=== PATIENT | male | born 1975 | race Caucasian/White ===

== ENCOUNTER 2017-09-21 09:04 | Emergency (ER) | payer OTHER ==
[2017-09-21 09:19] VITALS: RESP 18
[2017-09-21] MEDS ORDERED: Morphine 4 mg/ml ISec IVP STA (09:42)
[2017-09-21] MEDS ORDERED: Sodium Chloride 0.9% 500 ML IV STA (09:42)
--- NOTE | 2017-09-21 09:46 | ED PDOC ---
Arrival/HPI - General Chief Complaint: Abdominal Pain Time Seen by Provider: 09/21/17 09:19 Historian: Patient, Spouse - History of Present Illness Narrative History of Present Illness (Text): 09/21/17 09:47 A 42 year old male, whose past medical history includes hypertension, was brought in by EMS to the emergency department complaining of abdominal pain, an hour ago, that developed after peritoneal dialysis. Patient denies any symptoms prior to dialysis treatment. Patient's reports two episodes of vomiting but denies any diarrhea, urinary symptoms, or any other complaints at this time. Time/Duration: 1 hour Symptom Onset: Sudden Symptom Course: Unchanged Activities at Onset: Rest Past Medical History - Provider Review Nursing Documentation Reviewed: Yes - Infectious Disease Hx of Infectious Diseases: None - Cardiac Hx Cardiac Disorders: Yes Hx Hypertension: Yes - Pulmonary Hx Respiratory Disorders: No - Neurological Hx Neurological Disorder: No - HEENT Hx HEENT Disorder: No - Renal Hx Renal Disorder: Yes Type of Dialysis Access: peritoneal dialysis, RLQ Date of Last Dialysis Treatment: 09/21/17 - Endocrine/Metabolic Hx Endocrine Disorders: No - Hematological/Oncological Hx Blood Disorders: No - Integumentary Hx Dermatological Disorder: No - Musculoskeletal/Rheumatological Hx Musculoskeletal Disorders: No - Gastrointestinal Hx Gastrointestinal Disorders: No - Genitourinary/Gynecological Hx Genitourinary Disorders: No - Psychiatric Hx Psychophysiologic Disorder: No Hx Substance Use: No - Surgical History Other/Comment: peritoneal dialysis placement in RLQ - Anesthesia Hx Anesthesia: Yes Hx Anesthesia Reactions: No Family/Social History - Physician Review Nursing Documentation Reviewed: Yes Family/Social History: Other (nc) Smoking Status: Heavy Smoker > 10 Cigarettes Daily Hx Alcohol Use: No Hx Substance Use: No Allergies/Home Meds Allergies/Adverse Reactions: Allergies No Known Allergies Allergy (Verified 09/21/17 09:14) Home Medications: Home Meds Medication Instructions Recorded Confirmed Carvedilol [Coreg Cr] 0 mg PO DAILY 09/21/17 09/21/17 Diclofenac [Diclofenac] 0 mg PO DAILY 09/21/17 09/21/17 Ibuprofen [Advil] 0 mg PO PRN PRN 09/21/17 09/21/17 metroNIDAZOLE [Flagyl] 0 mg PO DAILY 09/21/17 09/21/17 Review of Systems - Physician Review All systems were reviewed & negative as marked: Yes - Review of Systems Gastrointestinal: Abdominal Pain, Vomiting. absent: Diarrhea Genitourinary Male: absent: Dysuria, Frequency, Hematuria Physical Exam Vital Signs Reviewed: Yes Vital Signs Temp Pulse Resp BP Pulse Ox 09/21/17 16:55 98.9 F 86 18 155/94 H 100 09/21/17 16:34 98.7 F 86 18 155/94 H 100 09/21/17 15:13 100.0 F H 84 18 155/85 H 100 09/21/17 11:22 79 18 166/96 H 100 09/21/17 09:19 97.7 F 73 18 186/112 H 99 Appearance: Positive for: Well-Appearing, Non-Toxic, Comfortable Pain Distress: Mild Mental Status: Positive for: Alert and Oriented X 3 - Systems Exam Head: Present: Atraumatic, Normocephalic Pupils: Present: PERRL Extroacular Muscles: Present: EOMI Conjunctiva: Present: Normal Mouth: Present: Moist Mucous Membranes Neck: Present: Normal Range of Motion Respiratory/Chest: Present: Clear to Auscultation, Good Air Exchange. No: Respiratory Distress, Accessory Muscle Use Cardiovascular: Present: Regular Rate and Rhythm, Normal S1, S2. No: Murmurs Abdomen: Present: Tenderness (left sided), Normal Bowel Sounds, Other ( peritoneal dialysis catheter right lower abdomen, no erythema, no drainage). No : Distention Back: Present: Normal Inspection Upper Extremity: Present: Normal Inspection. No: Cyanosis, Edema Lower Extremity: Present: Normal Inspection. No: Edema Neurological: Present: GCS=15, CN II-XII Intact, Speech Normal Skin: Present: Warm, Dry, Normal Color. No: Rashes Psychiatric: Present: Alert, Oriented x 3, Normal Insight, Normal Concentration Medical Decision Making ED Course and Treatment: 09/21/17 09:48 Patient refused rectal temp. 09/21/17 13:10 CT scan of the abdomen pelvis Creator : Michael Allen MD IMPRESSION: Atrophic changes both kidneys left more significant than the right. Both kidneys exhibit on several low-attenuation foci likely representing cysts however the largest focus on on the right side exhibits Hounsfield units in the upper teens suggesting hyperdense cyst. Correlation with ultrasound could be performed. In situ intraperitoneal catheter which is presumed to represent a peritoneal dialysis catheter however clinical correlation recommended. Small amount of abdominal and pelvic ascites. Splenomegaly. Small to medium size hiatal hernia with wall thickening of the distal esophagus which could be due to protrusion of gastric mucosa. Esophagitis or other intrinsic/invasive wall lesion not excluded. Moderate amount of stool seen throughout the colon suggesting mild fecal retention. In addition, minimal wall edema or possibly submucosal fat deposition or possibly wall edema involving the ascending and transverse colon; submucosal fat deposition can be seen in is sequela of chronic inflammation however mild wall edema could be secondary to ascites ala or possibly a mild colitis.Clinical correlation recommended. . Possible renal osteodystrophy. 09/21/17 14:51 Patient requests transfer to [facility] [place] physician is affiliated with [facility]. 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 Morejon, who recommends to give patient gram of vancomycin and 80 mg gentamicin. She will accept patient as transfer to [facility]. 1655 pt stable upon transfer to [facility] [place] - Lab Interpretations Lab Results: 09/21/17 09:25 09/21/17 09:25 Lab Results 09/21/17 09:25: pO2 25 L, VBG pH 7.24 L, VBG pCO2 48.0, VBG HCO3 20.6 L, VBG Total CO2 22.1, VBG O2 Sat (Calc) 53.3, VBG Base Excess -6.9 L, VBG Potassium 4.5, Sodium 135.0, Chloride 104.0, Glucose 98, Lactate 0.5 L, FiO2 21.0, Venous Blood Potassium 4.5 09/21/17 09:25: Sodium 137, Chloride 102, Potassium 4.4, Carbon Dioxide 20 L, Anion Gap 19, BUN 105 H, Creatinine 16.7 H*, Est GFR ( Amer) 4, Est GFR ( Non-Af Amer) 3, Random Glucose 94, Calcium 8.2 L, Total Bilirubin 0.4, AST 18, ALT 33, Alkaline Phosphatase 144 H, Total Protein 6.6, Albumin 3.6, Globulin 2.9 , Albumin/Globulin Ratio 1.2, Lipase 515 H 09/21/17 09:25: WBC 5.1, RBC 3.51, Hgb 10.0 L, Hct 30.0 L, MCV 85.5, MCH 28.5, MCHC 33.3, RDW 14.0, Plt Count 167, MPV 10.8, Gran % 66.7, Lymph % (Auto) 19.3 L , Mcintosh % (Auto) 2.7, Eos % (Auto) 11.3 H, Baso % (Auto) 0.0, Gran # 3.41, Lymph # 1.0 L, Mcintosh # 0.1, Eos # 0.6, Baso # 0.00 I have reviewed the lab results: Yes - RAD Interpretation Radiology Orders: 09/21/17 10:40 ABD & PELVIS W/O PO OR IV CONT [CT] Stat - Medication Orders Current Medication Orders: Discontinued Medications Acetaminophen (Tylenol 325mg Tab) 975 mg PO STAT STA Stop: 09/21/17 15:31 Last Admin: 09/21/17 15:35 Dose: 975 mg MAR Pain/Vitals Document 09/21/17 15:35 EQ (Rec: 09/21/17 16:02 EQ [id number]) Pain Reassessment Is This A Pain ReAssessment? No Sleep Is patient sleeping during reassessment? No Presence of Pain Presence of Pain Yes Hydromorphone HCl (Dilaudid) 1 mg IVP STAT STA Stop: 09/21/17 10:51 Last Admin: 09/21/17 11:24 Dose: 1 mg MAR Pain Assessment Document 09/21/17 11:24 EQ (Rec: 09/21/17 11:24 EQ [id number]) Pain Reassessment Is this a pain reassessment? No Sleep Is patient sleeping during reassessment? No Presence of Pain Presence of Pain Yes Pain Scale Used Pain Scale Used Numeric IVP Administration Document 09/21/17 11:24 EQ (Rec: 09/21/17 11:24 EQ [id number]) Charges for Administration # of IVP Administrations 1 Hydromorphone HCl (Dilaudid) 1 mg IVP STAT STA Stop: 09/21/17 16:20 Last Admin: 09/21/17 16:31 Dose: 1 mg MAR Pain Assessment Document 09/21/17 16:31 EQ (Rec: 09/21/17 16:31 EQ [id number]) Pain Reassessment Is this a pain reassessment? No Sleep Is patient sleeping during reassessment? No Presence of Pain Presence of Pain Yes IVP Administration Document 09/21/17 16:31 EQ (Rec: 09/21/17 16:31 EQ [id number]) Charges for Administration # of IVP Administrations 1 Sodium Chloride (Sodium Chloride 0.9%) 500 mls @ 999 mls/hr IV .Q31M STA Stop: 09/21/17 10:12 Last Admin: 09/21/17 09:53 Dose: 999 mls/hr eMAR Start Stop Document 09/21/17 09:53 EQ (Rec: 09/21/17 09:53 EQ [id number]) Intravenous Solution Start Date 09/21/17 Start Time 09:53 Gentamicin Sulfate 80 mg/ (Sodium Chloride) 102 mls @ 100 mls/hr IVPB STAT STA PRN Reason: Protocol Stop: 09/21/17 12:15 Last Admin: 09/21/17 11:45 Dose: 100 mls/hr eMAR Start Stop Document 09/21/17 11:45 EQ (Rec: 09/21/17 12:27 EQ [id number]) Intravenous Solution Start Date 09/21/17 Start Time 11:45 Vancomycin HCl (Vancomycin 1gm) 1 gm in 250 mls @ 167 mls/hr IVPB STAT STA Stop: 09/21/17 12:45 Last Admin: 09/21/17 13:00 Dose: 167 mls/hr eMAR Start Stop Document 09/21/17 13:00 EQ (Rec: 09/21/17 14:23 EQ [id number]) Intravenous Solution Start Date 09/21/17 Start Time 14:23 Morphine Sulfate (Morphine) 4 mg IVP STAT STA Stop: 09/21/17 09:43 Last Admin: 09/21/17 09:53 Dose: 4 mg MAR Pain Assessment Document 09/21/17 09:53 EQ (Rec: 09/21/17 09:53 EQ [id number]) Pain Reassessment Is this a pain reassessment? No Sleep Is patient sleeping during reassessment? No Presence of Pain Presence of Pain Yes Pain Scale Used Pain Scale Used Numeric IVP Administration Document 09/21/17 09:53 EQ (Rec: 09/21/17 09:53 EQ [id number]) Charges for Administration # of IVP Administrations 1 Ondansetron HCl (Zofran Inj) 4 mg IVP ONCE ONE Stop: 09/21/17 09:43 Last Admin: 09/21/17 09:53 Dose: 4 mg IVP Administration Document 09/21/17 09:53 EQ (Rec: 09/21/17 09:53 EQ [id number]) Charges for Administration # of IVP Administrations 1 - Scribe Statement The provider has reviewed the documentation as recorded by the Vinicio Dozier Provider Scribe Attestation: All medical record entries made by the Scribe were at my direction and personally dictated by me. I have reviewed the chart and agree that the record accurately reflects my personal performance of the history, physical exam, medical decision making, and the department course for this patient. I have also personally directed, reviewed, and agree with the discharge instructions and disposition. Disposition/Present on Arrival - Present on Arrival Any Indicators Present on Arrival: No History of DVT/PE: No History of Uncontrolled Diabetes: No Urinary Catheter: No History of Decub. Ulcer: No History Surgical Site Infection Following: None - Disposition Have Diagnosis and Disposition been Completed?: Yes Diagnosis: Abdominal pain Disposition: Transfer [facility] Disposition Time: 16:55 Condition: STABLE Referrals: Emelia Morejon MD [Primary Care Provider] - Follow up with primary Forms: [employer] (Bhutanese)
[2017-09-21 09:50] LABS: EOS # 0.6 (0.0-0.7); EOS % 11.3 % (1.5-5.0); GRAN # 3.41 (1.4-6.5); GRAN % 66.7 % (50.0-68.0); LYMPH % 19.3 % (22.0-35.0); MEAN CELL VOLUME 85.5 fl (80.0-105.0); MEAN CORPUSCULAR HEMOGLOBIN 28.5 pg (25.0-35.0); MEAN CORPUSCULAR HGB CONC 33.3 g/dl (31.0-37.0); MEAN PLATELET VOLUME 10.8 fl (7.0-11.0); MONO # 0.1 (0.1-0.6); MONO % 2.7 % (1.0-6.0); RBC 3.51 10^6/uL (3.5-6.1); VENOUS BLOOD GAS BASE EXCESS -6.9 mmol/L (0.0-2.0); VENOUS BLOOD GAS PO2 25 mm/Hg (30-55); VENOUS BLOOD PH 7.24 (7.32-7.43); WHITE BLOOD COUNT 5.1 10^3/ul (4.5-11.0)
[2017-09-21 10:07] LABS: ALB/GLOB RATIO 1.2 (1.1-1.8); ALBUMIN 3.6 g/dL (3.0-4.8); CALCIUM 8.2 mg/dL (8.4-10.5)
[2017-09-21] MEDS ORDERED: HYDROmorphone 1 mg/ml ISec IVP STA ×2 (10:50→16:19)
[2017-09-21] MEDS ORDERED: Vancomycin 500 mg Inj IVPB STA (11:14)
[2017-09-21] MEDS ORDERED: Vancomycin 1gm in NS 250ml 1 GM/250 ML BAG IVPB STA (11:16)
[2017-09-21 11:24] VITALS: O2SAT 100
--- NOTE | 2017-09-21 13:09 | CT ---
PROCEDURE: CT scan of the abdomen pelvis dated 09/21/2017. HISTORY: Pain COMPARISON: No prior study available comparison TECHNIQUE: Contiguous axial images of the abdomen and pelvis pelvis performed without oral or intravenous contrast material. . Coronal and Sagittal reformats generated. This CT exam was performed using one or more of the following dose reduction techniques: Automated exposure control, adjustment of the mA and/or kV according to patient size, and/or use of iterative reconstruction technique. Radiation dose: Total exam DLP = 509.64 mGy-cm. FINDINGS: LOWER THORAX: Mild atelectasis both lung bases right greater than left. No focal consolidation effusion or basilar pneumothorax. There is a small to medium-sized hiatal hernia with wall thickening of the distal esophagus likely due to protrusion of gastric mucosa. Possibility of esophagitis or other intrinsic/invasive wall lesion not excluded. LIVER: Liver exhibits normal size measuring approximately 16.6 cm in CC dimension. No obvious hepatic mass collection or calcification. Small amount of perihepatic ascites GALLBLADDER AND BILE DUCTS: Gallbladder is physiologically distended. No evidence of intraluminal gallbladder calculi. PANCREAS: The visualized portions of the pancreas appear grossly unremarkable without masses collections or calcifications. No significant pancreatic ductal dilatation. SPLEEN: Spleen is mildly enlarged measuring approximately 13.6 cm and in greatest CC dimension. . . No splenic masses collections or calcifications seen. Small amount of of perisplenic ascites ADRENALS: No adrenal lesions. KIDNEYS AND URETERS: Left kidney markedly atrophic. Right kidney is mildly atrophic. Two with 3 small cystic foci left kidney. Several of small low-attenuation foci right kidney 1 of which the largest of which is exophytic arising from the lower pole that exhibits Hounsfield units in the upper teens. This could represent a hyperdense cyst. Followup ultrasound could confirm and exclude any solid components. BLADDER: . The urinary bladder is incompletely distended which presumably in part accounts for slight thick-walled appearance. Muscular hypertrophy may contribute. . No evidence of intraluminal urinary bladder calculi REPRODUCTIVE: Prostate gland measures approximately 4.5 cm in transverse dimension. Seminal vesicles appear grossly unremarkable. APPENDIX: Normal-appearing appendix best seen on axial image number [id number]. BOWEL: Evaluation of the bowel is limited due to the lack of oral contrast. Stomach is incompletely distended which presumably accounts for thick-walled appearance. Gastritis not excluded. Visualized loops of small bowel exhibit relatively normal contour and caliber however does contain scattered fecalized content. Clinical correlation recommended. . Moderate amount of stool seen throughout the colon suggesting mild fecal retention. In addition, minimal wall edema or possibly submucosal fat deposition or possibly wall edema involving the ascending and transverse colon; submucosal fat deposition can be seen in is sequela of chronic inflammation however mild wall edema could be secondary to ascites ala or possibly a mild colitis. Clinical correlation recommended. . PERITONEUM: In situ intraperitoneal catheter the bulk of which is coiled in the pelvis and partially surrounded by a small amount of free fluid. The proximal end of the catheter is extends through the right lower anterior abdominus rectus muscle and through the overlying focal subcutaneous tissues. This probably represents a peritoneal dialysis catheter LYMPH NODES: No significant/ bulky adenopathy. . VASCULATURE: No evidence of abdominal aortic or iliac artery aneurysm. BONES: There are no acute compression fractures no retropulsed fragments. Minor chronic anterior stature loss of a few lower thoracic segments. Mild multilevel degenerative spondylosis of. The osseous structures appear somewhat homogeneously dense ; rule out renal osteodystrophy. OTHER FINDINGS: None. IMPRESSION: Atrophic changes both kidneys left more significant than the right. Both kidneys exhibit on several low-attenuation foci likely representing cysts however the largest focus on on the right side exhibits Hounsfield units in the upper teens suggesting hyperdense cyst. Correlation with ultrasound could be performed. In situ intraperitoneal catheter which is presumed to represent a peritoneal dialysis catheter however clinical correlation recommended. Small amount of abdominal and pelvic ascites. Splenomegaly. Small to medium size hiatal hernia with wall thickening of the distal esophagus which could be due to protrusion of gastric mucosa. Esophagitis or other intrinsic/invasive wall lesion not excluded. Moderate amount of stool seen throughout the colon suggesting mild fecal retention. In addition, minimal wall edema or possibly submucosal fat deposition or possibly wall edema involving the ascending and transverse colon; submucosal fat deposition can be seen in is sequela of chronic inflammation however mild wall edema could be secondary to ascites ala or possibly a mild colitis.Clinical correlation recommended. . Possible renal osteodystrophy.
--- NOTE | 2017-09-21 15:25 | CARD ---
APPROVED REPORT EKG Measurement Heart [id number] <Conclusion> Normal sinus rhythm ST & T wave abnormality, consider lateral ischemia Abnormal ECG
[2017-09-21 16:35] VITALS: BP 155/94; PULSE 86
[2017-09-21 18:24] VITALS: TEMP 98.9
== END 2017-09-21 16:55 | disposition short-term general hospital (02) ==
LOC: ED 09:04
DX: R10.9 Unspecified abdominal pain (principal); I10 Essential (primary) hypertension; F17.210 Nicotine dependence, cigarettes, uncomplicated
CPT/HCPCS: 74176; 80053; 82803; 83690; 85025; 93005; 96374; 96375; 96376; 99284; J1170; J1580; J2270; J2405; J7040